=== PATIENT | female | born 1990 | race Caucasian/White ===

== ENCOUNTER 2019-12-09 12:57 | Emergency (ER) | payer BC, SELFPAY ==
[2019-12-09 13:51] VITALS: BP 118/68; PULSE 79; RESP 20; TEMP 36.9; O2SAT 100
--- NOTE | 2019-12-09 14:35 | ED.GENADULT ---
HPI - General Adult General Chief complaint: Upper Respiratory Infection Stated complaint: Ear/Sore Throat/cough Time Seen by Provider: 12/09/19 14:35 Source: patient and RN notes reviewed Mode of arrival: ambulatory Limitations: no limitations History of Present Illness HPI narrative: This patient said a 6-day history of bilateral ear discomfort with slight irritation to her throat from coughing but no severe sore throat. She has had a cough productive of green phlegm for the past 2 days whereas prior to that was productive of only a clear phlegm. She has had no chest pain or shortness of breath. She had no drainage from the ears. She has had no nasal drainage. She has not had any nausea, no vomiting, no diarrhea. She has had no hematuria, no dysuria, no pyuria. She has had no known exposure to anyone with influenza, bronchitis, pneumonia, strep throat, mono that she is aware of. Related Data Home Medications Medication Instructions Recorded Confirmed naproxen 500 mg PO BID 12/09/19 12/09/19 Allergies Allergy/AdvReac Type Severity Reaction Status Date / Time silver sulfadiazine Allergy Intermediate Hives / Verified 03/31/19 09:00 Red Face Sulfa (Sulfonamide Allergy Hives Verified 12/09/19 14:03 Antibiotics) Review of Systems Review of Systems: Narrative: CONSTITUTIONAL: Denies fever, chills, or sweats. Noncontributory except as pertains to the past medical history and history of present illness. EYES: Denies visual changes, redness, or discharge. ENT: Denies rhinorrhea, congestion, sore throat, or otalgia. CARDIOVASCULAR: Denies chest pain, palpitations, or edema. RESPIRATORY: Denies cough or dyspnea. GASTROINTESTINAL: Denies abdominal pain, nausea, vomiting, or diarrhea. GENITOURINARY: Denies dysuria or hematuria. SKIN: Denies rash or itching. MUSCULOSKELETAL: Denies back pain, joint pain, or myalgia. NEUROLOGIC: Denies headache, numbness, or weakness. PSYCHIATRIC: Denies anxiety or depression. PMFSH Social History Social History Smoking status: Never smoker Comments At time of signature, I have reviewed and agree with nursing past medical, surgical, social, and family history.Please see nursing chart for further information. There is no relevant family history pertinent to the presenting complaint. Exam Narrative: Exam Narrative: GENERAL: Well-appearing, well-nourished, and in no acute distress. HEAD: Normocephalic, atraumatic. EYES: PERRLA and EOMI. EARS: TM's clear bilaterally and the canals are clear. NOSE: Nares clear, no rhinorrhea or epistaxis. THROAT:Mucous membranes moist.Oropharynx Normal without erythema or exudates. NECK: Supple. No adenopathy of the neck, supraclavicular, axillary, or inguinal areas. RESPIRATORY: No respiratory distress. Airway patent. Respirations non-labored. The patient has rhonchi in the upper and midlung de la torre, but not the bases. She has a loose wet cough during the exam. There are no wheezes, no rales, no retractions, no use accessory muscles of respirations. The patient's not cyanotic and not dyspneic. Her pulse ox on room air is 100% current temperature is 98.4. HEART: Regular rate and rhythm. No murmur heard. Normal peripheral pulses. ABDOMEN: Soft, nontender, nondistended, normal active bowel sounds.No masses. No rebound or guarding, No organomegaly. There is no CVA pain. No pain McBurney's point. She has a negative Gomez sign and negative Rovsing sign. There are no pulsatile masses no audible bruits. EXTREMITIES: No clubbing/cyanosis/ edema. Normal strength & range of motion. SKIN: Warm, dry.Normal color. No skin rash or skin lesions. Patient is well-nourished well-hydrated has moist mucous membranes and no tenting of the skin. NEURO: Alert and oriented. CN 2-12 grossly intact. No focal deficits. PSYCH: Normal mood and affect. Course Vital Signs Vital signs: Vital Signs Temperature 36.9 C 12/09/19 13:51 Pulse Rate 79 12/09/19 13:51 Res
== END 2019-12-09 14:45 | disposition home or self-care (01) ==
PROVIDERS: Emergency Provider Family Medicine; PCP Family Medicine
DX: J40 Bronchitis, not specified as acute or chronic (principal); M06.9 Rheumatoid arthritis, unspecified
CPT/HCPCS: 99213; G0463

== ENCOUNTER 2023-07-25 09:19 | Emergency (ER) | payer BC, SELFPAY ==
[2023-07-25 09:23] VITALS: BP 121/72; PULSE 77; RESP 18; TEMP 37; O2SAT 99
--- NOTE | 2023-07-25 09:37 | ED.DENTAL ---
HPI - Dental/Oral General Stated complaint: Toothache/Facial Swelling History of Present Illness HPI Narrative: Patient presents with pain and tenderness to the back lower wisdom tooth area. Patient states she is scheduled with an oral surgeon to have her wisdom teeth removed but feels as if there is an infection at this time. He can open her mouth fully no trauma, no drooling no trouble swallowing. Related Data Home Medications Medication Instructions Recorded Confirmed naproxen 500 mg tablet 500 mg PO BID 12/09/19 12/09/19 Allergies Allergy/AdvReac Type Severity Reaction Status Date / Time silver sulfadiazine Allergy Intermediate Hives / Verified 03/31/19 09:00 Red Face Sulfa (Sulfonamide Allergy Hives Verified 12/09/19 14:03 Antibiotics) Review of Systems Review of Systems: CONSTITUTIONAL: Denies fever, chills, or sweats. EYES: Denies visual changes, redness, or discharge. ENT: Denies rhinorrhea, congestion, sore throat, or otalgia. CARDIOVASCULAR: Denies chest pain, palpitations, or edema. RESPIRATORY: Denies cough or dyspnea. GASTROINTESTINAL: Denies abdominal pain, nausea, vomiting, or diarrhea. GENITOURINARY: Denies dysuria or hematuria. SKIN: Denies rash or itching. MUSCULOSKELETAL: Denies back pain, joint pain, or myalgia. NEUROLOGIC: Denies headache, numbness, or weakness. PSYCHIATRIC: Denies anxiety or depression. PMFSH Social History Social History Smoking status: Never smoker Comments At time of signature, agree with nursing past medical, surgical, social and family history. There is no relevant family history pertinent to the presenting complaint Exam Narrative: GENERAL: Well-appearing, well-nourished, and in no acute distress. HEAD: Normocephalic, atraumatic. EYES: PERRLA and EOMI. ENT: Nares clear, no rhinorrhea or epistaxis. Mucous membranes moist. NO MEREDITH APICAL SWELLING, TOOTH TENDER TO PALPATION. NO FACIAL SWELLING. NO TRISMUS. ABLE TO OPEN MOUTH FULLY. NO NECK SWELLING OR TORIE'S ANGINA. NO ABSCESS TO BE DRAINED. no drooling, trismus, facial asymmetry or significant neck swelling left lower wisdom tooth? NECK: Supple. CHEST: Clear to auscultation. No respiratory distress. HEART: Regular rate and rhythm. No murmur heard. Normal peripheral pulses. ABDOMEN: Soft, nontender, nondistended, normal active bowel sounds. EXTREMITIES: Normal range of motion. No edema. SKIN: Warm, dry, no rash. NEURO: No focal deficits. Alert and oriented x3. [place] Coma Scale Eye Opening: Spontaneous 4 Gigi Coma Scale Motor: Obeys Commands 6 Gigi Coma Scale Verbal: Oriented 5 Gigi Coma Scale Total 15 Course Course Level of Care: Express Care Visit Vital Signs Vital signs: Vital Signs Temperature 37.0 C 07/25/23 09:23 Pulse Rate 77 07/25/23 09:23 Respiratory Rate 18 07/25/23 09:23 Blood Pressure 121/72 07/25/23 09:23 Pulse Oximetry 99 07/25/23 09:23 Oxygen Delivery Room Air 07/25/23 09:23 Temperature 37.0 C 07/25/23 09:23 Pulse Rate 77 07/25/23 09:23 Respiratory Rate 18 07/25/23 09:23 Blood Pressure 121/72 07/25/23 09:23 Pulse Oximetry 99 07/25/23 09:23 Oxygen Delivery Room Air 07/25/23 09:23 Discharge Plan Discharge Clinical Impression: Dental abscess, Pain, dental Additional Instructions: Avoid temperature extremes May apply heat or ice to the face Gentle brushing and flossing Antibiotic as directed Tylenol for lesser pain Use ibuprofen regularly Use the medication as provided for severe pain--caution each tablet contains 325 mg of Tylenol--the maximum dose of Tylenol is 4000 mg in 24 hours. This medication may cause constipation consider starting a laxative at this time Follow-up with the dentist as soon as possible--see the list provided -If you have any worsening of symptoms or any other concerns please go to the ED immediately. Prescriptions: New penicillin V potassium 500 mg tablet 500 mg PO
== END 2023-07-25 09:50 | disposition home or self-care (01) ==
PROVIDERS: Emergency Provider Nurse Practitioner Family; PCP Student in an Organized Health Care Education/Training Program
DX: K04.7 Periapical abscess without sinus (principal); M06.9 Rheumatoid arthritis, unspecified
CPT/HCPCS: 99213; G0463

== ENCOUNTER → 2023-12-15 07:50 | Outpatient (CLI) | payer BC, SELFPAY ==
--- NOTE | ~2023-12-15 | US_ITS ---
EXAMINATION: US abdomen limited DATE: 12/15/2023 08:10 INDICATION: Left upper quadrant pain TECHNIQUE: Limited ultrasound is performed in the area of clinical concern in the left upper quadrant . COMPARISON: None available FINDINGS: No sonographic correlate is identified for the area of reported left upper quadrant pain. N ormal subcutaneous tissues are visualized. IMPRESSION: 1. No specific sonographic correlate is identified for the patient's reported left upper quadrant bridget n. Further evaluation at this time should be based on clinical assessment. Continued follow-up physic al examination is recommended. Reviewed, dictated and finalized at location B. IGERATION TECHNICIAN IMPRESSION: 1. No specific sonographic correlate is identified for the patient's reported l eft upper quadrant pain. Further evaluation at this time should be based on cli nical assessment. Continued follow-up physical examination is recommended.
== END ==
PROVIDERS: PCP Registered Nurse; Visit Provider Registered Nurse
DX: R10.12 Left upper quadrant pain (principal)
CPT/HCPCS: 76705

== ENCOUNTER 2024-02-02 06:05 | Emergency (ER) | payer BC, SELFPAY ==
--- NOTE | ~2024-02-02 | XR_ITS ---
EXAMINATION: XR sacrum coccyx min 2V DATE: 02/02/2024 07:01 INDICATION: Fall. TECHNIQUE: 3 views of the sacrum and coccyx were obtained. COMPARISON: Lumbar spine radiographs 09/09/2018 FINDINGS: Bone alignment is normal. No fracture. There is mild lumbar spondylosis. IMPRESSION: 1. No fracture. Reviewed, dictated and finalized at location A. IMPRESSION: 1. No fracture.
--- NOTE | ~2024-02-02 | CT_ITS ---
EXAMINATION: CT lumbar spine wo con DATE: 02/02/2024 07:03 INDICATION: Fall. TECHNIQUE: Computed tomography (CT) of the lumbar spine was performed without intravenous contrast. A utomated exposure control and iterative reconstruction technique were employed. The dose-length produ ct was 349.99 mGy-cm. COMPARISON: Lumbar spine radiographs 09/09/2018, thoracic spine radiograph 09/09/2018 FINDINGS: There are hypoplastic ribs at L1. S1 is a transitional segment. Bone alignment is normal. V ertebral body heights are normal. There is mildly decreased disc height at L5-S1. The following disc levels are specifically discussed: L1-L2: The disc does not extend beyond the endplate margin. There is mild bilateral facet joint osteo arthritis. There is no neural foraminal stenosis. There is no central canal stenosis. L2-L3: The disc does not extend beyond the endplate margin. There is mild bilateral facet joint osteo arthritis. There is no neural foraminal stenosis. There is no central canal stenosis. L3-L4: The disc does not extend beyond the endplate margin. There is mild bilateral facet joint osteo arthritis. There is no neural foraminal stenosis. There is no central canal stenosis. L4-L5: The disc is bulging. There is mild bilateral facet joint osteoarthritis. There is mild bilater al neural foraminal stenosis. There is mild central canal stenosis. L5-S1: The disc is bulging. There is mild bilateral facet joint osteoarthritis. There is mild bilater al neural foraminal stenosis. There is mild central canal stenosis. IMPRESSION: 1. Mild lumbar spondylosis. Reviewed, dictated and finalized at location A. IMPRESSION: 1. Mild lumbar spondylosis.
[2024-02-02 06:11] VITALS: BP 120/72; PULSE 86; RESP 14; TEMP 36.4; O2SAT 100
[2024-02-02] MEDS: KETOROLAC 30 MG/ML VIAL (*BKC) 15 MG IM (06:32)
--- NOTE | 2024-02-02 06:38 | ED.FALL ---
HPI - Fall General Chief Complaint: Fall Stated Complaint: Slip and fall, back pain Time Seen by Provider: 02/02/24 06:23 History of Present Illness HPI Narrative: Patient is a 34-year-old female who presents to the emergency department this evening status post slip and fall. Patient states that she slipped on her porch and landed backwards landing on her tailbone. This happened earlier today patient states that she has been walking she does have tailbone and lower back pain. Patient denies hitting her head, denies loss of consciousness and denies any blood thinner use. She denies any bowel or bladder incontinence, any numbness and/or tingling or focal weakness along her bilateral lower extremity. There are no other modifying, alleviating, or precipitating factors at this time. Related Data Allergies Allergy/AdvReac Type Severity Reaction Status Date / Time silver sulfadiazine Allergy Intermediate Hives / Verified 02/02/24 06:19 Red Face Sulfa (Sulfonamide Allergy Hives Verified 02/02/24 06:19 Antibiotics) Review of Systems Review of Systems: All systems are reviewed and are negative unless stated otherwise in the HPI. [facility] Social History Social History Smoking status: Never smoker Comments Patient admits to history of previous back injury, denies any additional significant past medical or surgical history denies any pertinent family history. Denies any tobacco use, alcohol abuse or illicit drug use. Exam Narrative: General: Alert, awake, afebrile, in no acute distress. HEENT: PERRL, no rhinorrhea, no post nasal drip, oropharynx clear. Neck: Trachea midline, no JVD, no lymphadenopathy. Cardiovascular: Regular rate and rhythm, no murmurs, rubs or gallops, no peripheral edema. Respiratory: Clear to auscultation bilaterally, no tachypnea, no wheezing, no rhonchi, no rubs, no respiratory distress. Abdomen: Soft, nontender, nondistended, no rebound, no guarding, no peritoneal signs. Musculoskeletal: No joint swelling or deformity, normal muscle tone. Back: Tenderness to palpation of the coccyx and lower midline lumbar spine. Skin: No rashes or petechia, no signs of infection. Psychiatric: Alert and oriented, normal behavior and judgment for situation. Neurological: Alert and oriented to person, place, and time. Follows all commands. No focal deficits, speech is clear and fluent. Course Vital Signs Vital signs: Vital Signs Temperature 97.5 F L 02/02/24 06:11 Pulse Rate 86 02/02/24 06:11 Respiratory Rate 14 02/02/24 06:11 Blood Pressure 120/72 02/02/24 06:11 Pulse Oximetry 100 02/02/24 06:11 Oxygen Delivery Room Air 02/02/24 06:11 Temperature 97.5 F L 02/02/24 06:11 Pulse Rate 86 02/02/24 06:11 Respiratory Rate 14 02/02/24 06:11 Blood Pressure 120/72 02/02/24 06:11 Pulse Oximetry 100 02/02/24 06:11 Oxygen Delivery Room Air 02/02/24 06:11 MDM - Fall MDM Narrative Medical decision making narrative: The patient was evaluated by myself in the emergency department. History is obtained from patient who is an independent historian and physical exam was performed. External medical records were reviewed at this time. Patient was administered 15 mg of IM Toradol for pain at this time. Imaging studies obtained included a sacrum and coccyx x-ray and a lumbar spine CT without IV contrast which was independently interpreted by me revealing no acute fractures or dislocations, patient was provided with copy of her CT report for incidental findings which patient states are chronic given her previous back injury, which is pending final radiology interpretation. Differential diagnosis considerations include fractures, dislocations, and lower back strain. Comorbidities impacting this visit include none. I have evaluated and discussed social determinants of health with the patient that could potentially impact lisa
== END 2024-02-02 07:25 | disposition home or self-care (01) ==
PROVIDERS: Emergency Provider Emergency Medicine
DX: S39.92XA Unspecified injury of lower back, initial encounter (principal); W01.0XXA Fall on same level from slipping, tripping and stumbling without subsequent striking against object, initial encounter
CPT/HCPCS: 72131; 72220; 81025; 96372; 99284; J1885